=== PATIENT | male | born 1955 | race Caucasian/White ===

== ENCOUNTER 2024-10-14 11:04 | Outpatient (CLI) | payer MEDICARE, SELFPAY | END 2024-10-14 11:05 | disposition home or self-care (01) | LOC: AMB 10-17 11:54 | PROVIDERS: Visit Provider Emergency Medicine | DX: R41.82 Altered mental status, unspecified (principal) | CPT/HCPCS: A0425; A0427 ==

== ENCOUNTER 2024-10-14 11:50 | Inpatient (IN) | payer MEDICARE, SELFPAY ==
[2024-10-14] VITALS (32 sets, daily range): BP systolic 80–140; BP diastolic 42–85; PULSE 90–113; RESP 18–20; TEMP 36.7–37.2; O2SAT 88–95
--- NOTE | 2024-10-14 12:31 | ED.GENADULT ---
HPI - General Adult General Time Seen by Provider: 12:31 Date Seen: 10/14/24 Chief complaint: Fall/Minor Trauma Stated complaint: weakness Time Seen by Provider: 10/14/24 12:10 Source: patient, EMS and RN notes reviewed Mode of arrival: EMS Limitations: no limitations History of Present Illness HPI narrative: This 69-year-old male is brought in by EMS from home. He is autistic living independently but has home care Monday and Monday. He fell today taking the garbage out landing on his right knee, has no complaints of pain. He also fell when showering, fell outside the bathtub. He is not sure why he fell. States he is not feeling weak. Has no pain. He did start taking tamsulosin recently. He does have a new cough. He is denying any fevers or chills. Again, no pain anywhere, no loss of consciousness. He denies any chest pain, states his cough is nonproductive. No other respiratory complaints. No abdominal complaints. He states his knee does not hurt but he does have an abrasion. When we talk about pneumonia, he states he sure hope he does not have pneumonia. Did talked him about doing COVID testing and he states he sure hopes he does not have COVID. Related Data Home Medications ?Medication ?Instructions ?Recorded ?Confirmed Vitamin D (with calcium) 10/14/24 atorvastatin 10 mg tablet 10 mg PO HS 10/14/24 10/14/24 cetirizine 10 mg tablet (Zyrtec) 10 mg PO DAILY PRN 10/14/24 10/14/24 lisinopril 10 mg tablet 10 mg PO DAILY 10/14/24 10/14/24 tamsulosin 0.4 mg capsule 0.4 mg PO DAILY 10/14/24 10/14/24 Allergies Allergy/AdvReac Type Severity Reaction Status Date / Time No Known Drug Allergies Allergy Verified 10/14/24 12:00 Review of Systems Status of ROS: Reports: 6 or more systems reviewed and unremarkable except as noted in History and below [facility] Medical History (Updated 10/14/24 @ 17:29 by Ely Acosta MD) Autism ?F84.0 - Autistic disorder (ICD-10) Social History Smoking Status: Never smoker Do you use any of these nicotine containing products: None How often do you have a drink containing alcohol: never AUDIT-C Alcohol total score: 0 Non-prescribed substance use: denies use Exam Const: Vital Signs, click to edit/add: Vital Signs - 24 hr 10/14/24 11:55 10/14/24 12:37 10/14/24 12:42 Temperature 98.1 F Pulse Rate Pulse Rate [Pulse Oximeter] 100 Pulse Rate [orthos tatic lying Pulse Oximeter] 103 H Pulse Rate [orthos tatic sitting] 108 H Respiratory Rate 20 Blood Pressure Blood Pressure [Ri ght Upper Arm] 118/60 Blood Pressure [or thostatic lying] 102/71 Blood Pressure [or thostatic sitting] 119/78 Pulse Oximetry 91 91 Oxygen Delivery Me thod Room Air 10/14/24 13:09 10/14/24 13:15 10/14/24 13:31 Temperature Pulse Rate 100 99 108 H Pulse Rate [Pulse Oximeter] Pulse Rate [orthos tatic lying Pulse Oximeter] Pulse Rate [orthos tatic sitting] Respiratory Rate Blood Pressure 119/78 Blood Pressure [Ri ght Upper Arm] Blood Pressure [or thostatic lying] Blood Pressure [or thostatic sitting] Pulse Oximetry 88 88 93 Oxygen Delivery Me thod 10/14/24 13:32 10/14/24 13:34 10/14/24 14:06 Temperature Pulse Rate 113 H 108 H 99 Pulse Rate [Pulse Oximeter] Pulse Rate [orthos tatic lying Pulse Oximeter] Pulse Rate [orthos tatic sitting] Respiratory Rate 18 Blood Pressure 122/69 Blood Pressure [Ri ght Upper Arm] Blood Pressure [or thostatic lying] Blood Pressure [or thostatic sitting] Pulse Oximetry 92 92 91 Oxygen Delivery Me thod 10/14/24 14:07 10/14/24 14:15 10/14/24 15:16 Temperature Pulse Rate 96 98 100 Pulse Rate [Pulse Oximeter] Pulse Rate [orthos tatic lying Pulse Oximeter] Pulse Rate [orthos tatic sitting] Respiratory Rate Blood Pressure Blood Pressure [Ri ght Upper Arm] Blood Pressure [or thostatic lying] Blood Pressure [or thostatic sitting] Pulse Oximetry 91 92 92 Oxygen Delivery Me thod 10/14/24 15:30 10/14/24 15:32 10/14/24 15:56 Temperature Pulse Rate 98 100 104 H Pulse Rate [Pulse Oximeter] Pulse Rate [orthos tatic lying Pulse Oximeter] Pulse Rate [orthos tatic sitting] Respiratory Rate Blood Pressure 130/81 Blood Pressure [Ri ght Upper Arm] Blood Pressure [or thostatic lying] Blood Pressure [or thostatic sitting] Pulse Oximetry 92 92 94 Oxygen Delivery Me thod 10/14/24 16:02 10/14/24 16:50 10/14/24 17:00 Temperature Pulse Rate 102 H 100 Pulse Rate [Pulse Oximeter] Pulse Rate [orthos tatic lying Pulse Oximeter] Pulse Rate [orthos tatic sitting] Respiratory Rate 18 Blood Pressure 139/84 Blood Pressure [Ri ght Upper Arm] Blood Pressure [or thostatic lying] Blood Pressure [or thostatic sitting] Pulse Oximetry 94 89 Oxygen Delivery Ny thod 10/14/24 17:02 10/14/24 17:15 10/14/24 17:30 Temperature Pulse Rate 95 100 95 Pulse Rate [Pulse Oximeter] Pulse Rate [orthos tatic lying Pulse Oximeter] Pulse Rate [orthos tatic sitting] Respiratory Rate 20 Blood Pressure 128/74 Blood Pressure [Ri ght Upper Arm] Blood Pressure [or thostatic lying] Blood Pressure [or thostatic sitting] Pulse Oximetry 90 91 91 Oxygen Delivery Ny thod 10/14/24 17:32 10/14/24 17:45 Temperature Pulse Rate 98 97 Pulse Rate [Pulse Oximeter] Pulse Rate [orthos tatic lying Pulse Oximeter] Pulse Rate [orthos tatic sitting] Respiratory Rate Blood Pressure 140/78 H Blood Pressure [Ri ght Upper Arm] Blood Pressure [or thostatic lying] Blood Pressure [or thostatic sitting] Pulse Oximetry 90 [address] [facility] 69-year-[facility] male is alert, interactive, no apparent distress. He is sitting in the bed in exam room 1, alert, interactive, speech is normal. He overall looks pale, is wearing glasses, sclera clear, extraocular muscles intact. A little mattering of his right eye but there is no periorbital change, sq is clear. Speech normal, face atraumatic. Lungs difficult to auscultate as he does not really not comply very well with doing deep breathing to listen. They sound clear anteriorly. CV slightly fast regular, no murmur, normal S1-S2, no S3-S4. Abdomen is soft, nontender, nondistended, no organomegaly or masses. He has no lower extremity edema. Does have an occasional little dry cough during the interaction but voice is not hoarse, no stridor. Has superficial abrasion over the right anterior knee with some mild bruising, there is no joint effusion, has full flexion-extension, really no appreciable tenderness. Documenting provider has reviewed patient's vital signs: yes Course Course ED Course: Wonder if patient has falls is exhibiting weakness for him. Nursing staff did appropriately collect a triple viral swab. Will do a portable chest x-ray to start, will x-ray his right knee as well. Patient is agreeable to doing blood work, will see if we can find source for him. With a tamsulosin, could be blood pressure change, will do orthostatics. Reevaluation(s) Time of Reevaluation #1: 13:38 Reevaluation #1: Did review patient's elevated liver enzymes, elevated white blood count, low-sodium. His chest x-ray certainly does look abnormal. We are going to proceed with chest abdomen pelvis CT imaging. He does not have a fever any hemodynamic changes signifying sepsis but need to watch him closely. Will initiate 500 mL normal saline, he is likely to require admission based on his labs. Time of Reevaluation #2: 17:26 Reevaluation #2: The IV unfortunately blue with the attempt at contrast, there was significant difficulty getting this. Nursing staff tried ultrasound, we had to call anesthesia. We are not going to be able to get another IV that will allow IV contrast for CT imaging. Will do a noncontrast CT, have talked the hospitalists, she can order liver imaging if need be. He is still not meeting any hemodynamic criteria for sepsis. Have spoken with her and we are going to give IV Rocephin and Z-Christopher. She would like inpatient, he is hyponatremic, has pneumonia and has an acute kidney injury. Vital Signs Vital signs: Initial Vital Signs Temperature 98.1 F 10/14/24 11:55 Temperature Source Temporal Artery Scan 10/14/24 11:55 Pulse Rate 100 10/14/24 11:55 Respiratory Rate 20 10/14/24 11:55 Blood Pressure 118/60 10/14/24 11:55 Blood Pressure Mean 7,991 H 10/14/24 11:55 Blood Pressure Position Supine 10/14/24 11:55 Pulse Oximetry 91 10/14/24 11:55 Oxygen Delivery Method Room Air 10/14/24 11:55 Vital Signs Temperature 98.1 F 10/14/24 11:55 Pulse Rate 100 10/14/24 11:55 Respiratory Rate 20 10/14/24 11:55 Blood Pressure 118/60 10/14/24 11:55 Pulse Oximetry 91 10/14/24 11:55 Oxygen Delivery Method Room Air 10/14/24 11:55 Temperature 99 F 10/14/24 18:41 Pulse Rate 104 H 10/14/24 18:41 Respiratory Rate 10/14/24 18:41 Blood Pressure 130/85 10/14/24 18:41 Pulse Oximetry 92 10/14/24 18:41 Oxygen Delivery Method Room Air 10/14/24 18:41 Medications Administered Medications: Discontinued Medications Generic Name Dose Route Start Last Admin Trade Name Freq PRN Reason Stop Dose Admin Sodium Chloride 500 mls @ 500 mls/hr 10/14/24 15:11 10/14/24 17:30 0.9 % Sodium Chloride 500 Ml IV 10/14/24 16:10 500 mls/hr .Q1H ONE Administration Medical Decision Making Lab Data Lab results reviewed: Yes I reviewed the patient's lab results Labs: Lab Results 10/14/24 10/14/24 10/14/24 Range/Units 12:30 13:02 13:44 WBC 21.03 H (4.50-11.00) K/uL RBC 4.16 (4.00-5.20) m/uL Hgb 12.5 (12.0-16.0) gm/dL Hct 37.1 (33.0-51.0) % MCV 89 (80-100) fL MCH 30 (26-34) pg MCHC 34 (32-36) gm/dL RDW Coeff of Abdulaziz 13.3 (11.5-15.5) % Plt Count 249 (140-440) K/uL Neut % (Auto) 80.0 H (42.0-72.0) % Lymph % (Auto) 5.2 L (20-44) % [place] % (Auto) 11.9 H (0.0-11.0) % Eos % (Auto) 0.0 (0.0-7.0) % Baso % (Auto) 0.1 (0.0-3.0) % Neut # (Auto) 16.80 H (1.7-7.0) K/uL Lymph # (Auto) 1.10 (0.90-2.90) K/uL [place] # (Auto) 2.50 H (0.00-0.90) K/UL Eos # (Auto) 0.00 (0.00-0.50) K/uL Baso # (Auto) 0.00 (0.00-0.30) K/uL Abs Immat Gran (auto) 0.60 H (0.00-0.30) K/uL Imm/Tot Granulo (auto) 2.8 % Sodium 126 L (135-149) mmol/L Potassium 4.3 (3.6-5.1) mmol/L Chloride 91 L (96-114) mmol/L Carbon Dioxide 24 (20-32) mmol/L Anion Gap 11 (7-15) mEq/L BUN 17 (7-30) mg/dL Creatinine 1.6 H (0.5-1.5) mg/dL Estimated GFR 35 ml/min Glucose 99 (60-115) mg/dL Lactate 1.7 (0.5-1.9) mmol/L Calcium 9.2 (8.4-10.6) mg/dL Total Bilirubin 0.6 (0.1-1.5) mg/dL AST 191 H (12-35) U/L ALT 240 H (4-35) U/L Alkaline Phosphatase 139 (40-150) U/L C-Reactive Protein 35.4 H (0.5-1.0) mg/dL Total Protein 6.2 (6.0-8.3) g/dL Albumin 3.2 L (3.3-5.0) g/dL Urine Color Dark yellow (Yellow) Urine Appearance Slightly Cloudy A (Clear) Urine pH 5.5 (5.0-8.5) Ur Specific [place] 1.020 (1.000-1.030) Urine Protein 3+ A (Negative) Urine Glucose (UA) Negative (Negative) Urine Ketones 3+ A (Negative) Urine Blood 3+ A (Negative) Urine Nitrite Negative (Negative) Urine Bilirubin 2+ A (Negative) Urine Urobilinogen 2.0 A (0.2-1.0) Ur Leukocyte Esterase Negative (Negative) Urine RBC 0-2 (0-2) Urine WBC 0-2 (0-5) Ur Squamous Epith Cells Few (None-Few) Amorphous Sediment Few A (None) Urine Bacteria None (None) Hyaline Casts Moderate A (None-Few) Coarse Granular Casts Moderate A (None) SARS-CoV-2 (PCR) Negative SARS-CoV-2 (Negative) Influenza Type A (PCR) Negative PCR FLU A (Negative) Influenza Type B (PCR) Negative PCR FLU B (Negative) RSV (PCR) Negative PCR RSV (Negative) Imaging Data Chest x-ray: Attestation: I have reviewed the pertinent imaging results. My impression: Do question if there is left upper lung changes, right lung changes that could be infectious with some infiltrate, await radiology over read. Radiologist's impression: Patient: LAILA YOUNG Facility:?[facility] Patient ID:?[id number] Site Patient ID:?[id number]. Site :?[id number] Study:?XRay-Chest 1 VIEW PORTABLE-10/14/2024 1:32:28 PM Ordering Physician:?Karla Graves Final Report: Indication: cough, falls Technique: AP view of the chest. Comparison: None. Findings: Low lung volumes. Normal cardiomediastinal silhouette. Moderate interstitial prominence and peribronchial cuffing. Mild bibasilar opacities. No pleural effusion or visualized pneumothorax. Impression: Moderate interstitial prominence and peribronchial cuffing may represent moderate pulmonary edema or atypical infection or inflammation. Dictated by Christiano Echevarria MD @ 10/14/2024 1:45:23 PM (Electronic Signature) XR right knee: Attestation: I have reviewed the pertinent imaging results. My impression: Did visualize knee x-rays and I see no acute fracture on my preliminary review, wait radiology over read. Radiologist's impression: Patient: LAILA YOUNG Facility:?[facility] Patient ID:?[id number] Site Patient ID:?[id number]. Site :?1955 Study:?XRay-Knee Right 2 VIEW-10/14/2024 1:34:39 PM Ordering Physician:Leonel Graves Final Report: Indication: fall, injury, abrasions/scrapes on anterior part of knee Technique: Two views of the right knee Comparison: None Findings/Impression: No acute fracture or malalignment. Trace suprapatellar knee joint effusion. Mild medial compartment joint space narrowing; otherwise, no additional osteoarthritic degenerative changes. No suspicious osseous lesions. The soft tissues are without acute abnormality. Vascular calcifications. Dictated by Danie Curtis MD @ 10/14/2024 1:46:38 PM (Electronic Signature) CT scan - chest: Attestation: I have reviewed the pertinent imaging results. My impression: Did visualize chest CT, do see bilateral multifocal changes that I think are probably pneumonia. Await Radiology over-read. Radiologist's impression: Patient: LAILA YOUNG Facility:?[facility] Patient ID:?[id number] Site Patient ID:?[id number]. Site :?1955 Study:?CT-Chest CT CHEST NO IV-10/14/2024 5:57:02 PM Ordering Physician:Leonel Graves Final Report: INDICATION: Cough, low O2 sats. TECHNIQUE: CT chest without contrast. COMPARISON: None. FINDINGS: Lungs and pleura: Patchy areas of consolidation and ground-glass opacities throughout the lungs. Small right pleural effusion. No pneumothorax. Heart and vasculature: Heart size is normal. Thoracic aorta and pulmonary artery are normal in caliber. Lymph nodes/mediastinum: No mediastinal, hilar, or axillary adenopathy. Small hiatal hernia. Chest wall: No masses. Upper abdomen: Partially imaged 1.4 cm hyperdense focus within the right kidney, likely a proteinaceous or hemorrhagic cyst. Bones: Unremarkable for age. IMPRESSION: Multilobar pneumonia with small right pleural effusion. Recommend follow-up imaging after treatment to ensure resolution. Please note that all CT scans at this facility use dose modulation, iterative reconstruction, and/or weight-based dosing when appropriate to reduce radiation dose to as low as reasonably achievable. Dictated by Carlton Ortiz MD @ 10/14/2024 6:37:26 PM (Electronic Signature) Discharge Plan Discharge Clinical Impression: Acute hyponatremia, Acute kidney injury, Elevation of levels of liver transaminase levels Community acquired pneumonia Qualifiers: Lung location: unspecified part of lung Fall Qualifiers: Encounter type: initial encounter Qualified Code(s): W19.XXXA - Unspecified fall, initial encounter Patient Disposition: Admitted As Inpatient
--- NOTE | 2024-10-14 12:37 | CRLHL7_ITS ---
For Patients: As a result of the Cures Act, medical imaging exams and procedure reports are released immediately into your electronic medical record. You may view this report before your referring provider. If you have questions, please contact your health care provider. Indication: cough, falls Technique: AP view of the chest. Comparison: None. Findings: Low lung volumes. Normal cardiomediastinal silhouette. Moderate interstitial prominence and peribronchial cuffing. Mild bibasilar opacities. No pleural effusion or visualized pneumothorax. Impression: Moderate interstitial prominence and peribronchial cuffing may represent moderate pulmonary edema or atypical infection or inflammation. Dictated by Christiano Echevarria MD @ 10/14/2024 1:45:23 PM (Electronically Signed)
--- NOTE | 2024-10-14 12:37 | CRLHL7_ITS ---
For Patients: As a result of the Cures Act, medical imaging exams and procedure reports are released immediately into your electronic medical record. You may view this report before your referring provider. If you have questions, please contact your health care provider. Indication: fall, injury, abrasions/scrapes on anterior part of knee Technique: Two views of the right knee Comparison: None Findings/Impression: No acute fracture or malalignment. Trace suprapatellar knee joint effusion. Mild medial compartment joint space narrowing; otherwise, no additional osteoarthritic degenerative changes. No suspicious osseous lesions. The soft tissues are without acute abnormality. Vascular calcifications. Dictated by Danie Curtis MD @ 10/14/2024 1:46:38 PM (Electronically Signed)
[2024-10-14 13:08] LABS: Lactate* 1.7 mmol/L (0.5-1.9)
--- OUTSIDE RECORDS SUMMARY | 2024-10-14 13:10 | XMS_ITS | Patient Health Record ---
Author Organization [facility] Address [address] [place] [address] Care Team Providers Care Accounting Manager Cpa Name Role Phone No PCP, per PT Primary Care Provider UnavailANGELITA Ruiz Unavailable [phone] No REF, per PT Unavailable Unavailable Allergies Allergen (clinical drug ingredient) Drug/Non Drug Allergy documented on EMR Reaction Allergy Type Onset Date Status Seasonale Unknown Drug Allergy Active hydrochlorothiazide Hydrochlorothiazide swelling Drug Aller gy Active Reason For Referral No Information Medications Medication SIG (Take, Route, Frequency, Duration) Notes Start Date End Date Status Flomax Active ZyrTEC 10 MG Tablet Chewable 1 tablet Orally Once a day Active Vitamin D 25 MCG (1000 UT) Tablet 1 tablet Orally Once a day Active Lisinopril 10 MG Tablet Take 1 Tablet (1 0 mg) by mouth once daily For blood pressure.* Oral; Duration: 90 Days Active Atorvastatin Calcium 10 MG Tablet Take 1 Tablet (10 mg) by mouth at bedtime FOR Cholesterol.* Oral; Duration: 90 Days Active Social History Tobacco Use: Social History Observation Description Date Details (start date - stop date) Never Smoker NA - NA Social History Alcohol Use: Social Info Question Answer Notes Recreational drugs Recreational Drug Use: No Drug/Alcohol: Social Info Question Answer Notes AUDIT-C (Standard) Did you have a drink containing alcohol in the past year? 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 Problem Impacted cerumen (20150896) Bilateral impacted cerumen (H61.23) Active confirmed Vital Signs Height-cm 173.99 cm 08/14/2024 Weight-kg 88.91 kg 08/14/2024 Height 68.5 in 08/14/2024 Weight 196 lbs 08/14/2024 BMI 29.37 kg/m2 08/14/2024 Encounters Encounter Location Date Provider Diagnosis [facility] [address] [place] [address] 05/29/2024 ANGELITA CHAWLA Bilateral impacted cerumen H61.23 [facility] [address] [place] [address] 08/14/2024 ANGELITA CHAWLA Bilateral impacted cerumen H61.23 Assessments Encounter Date Diagnosis (ICD Code) Assessment Notes Treatment Notes Treatment Clinical Notes Section Notes 05/29/2024 Bilateral impacted cerumen (ICD-10 - H61.23) Cerumen impaction removed. No other active ear pathology. 08/14/2024 Bilateral impacted cerumen (ICD-10 - H61.23) 05/29/2024 Other Body mass index material was printed Cerumen impaction removed. No other active ear pathology. Plan Of Treatment No Information Insurance Providers Payer Name Payer Address Payer Phone Subscriber Number Group Number Insured Name Patient Relationship to Insured Coverage Start Date Coverage End Date [employer] [address] [place], [place] [id number] Geovany Mcmullen Self - patient is the insured 4 Medical (General) History Medical History History ICD Code HTN Anxiety moderate intellectual deficiency
[2024-10-14 13:13] LABS: Hematocrit 37.1 % (33.0-51.0); Hemoglobin* 12.5 gm/dL (12.0-16.0); Immature Granulocytes Abs Auto 0.60 K/uL (0.00-0.30); Immature Granulocytes Pct Auto 2.8 %; Lymphocytes Absolute Auto 1.10 K/uL (0.90-2.90); Mean Corpuscular HGB Conc 34 gm/dL (32-36); Mean Corpuscular Hemoglobin 30 pg (26-34); Mean Corpuscular Volume 89 fL (80-100); RDW Coefficient of Variation % 13.3 % (11.5-15.5); Red Blood Count 4.16 m/uL (4.00-5.20); Slide Review Reflex No; White Blood Count* 21.03 K/uL (4.50-11.00)
[2024-10-14 13:19] LABS: PCR FLU A Negative PCR FLU A (Negative); PCR FLU B Negative PCR FLU B (Negative); PCR RSV Negative PCR RSV (Negative); SARS PCR* Negative SARS-CoV-2 (Negative)
[2024-10-14 13:27] LABS: Albumin* 3.2 g/dL (3.3-5.0); Chloride* 91 mmol/L (96-114); Potassium* 4.3 mmol/L (3.6-5.1); Sodium* 126 mmol/L (135-149)
[2024-10-14 13:29] LABS: Blood Urea Nitrogen* 17 mg/dL (7-30); Creatinine* 1.6 mg/dL (0.5-1.5); Estimated Glomerular Filt Rate 35 ml/min
[2024-10-14 13:30] LABS: Alanine Aminotransferase* 240 U/L (4-35); Alkaline Phosphatase* 139 U/L (40-150); Anion Gap 11 mEq/L (7-15); Aspartate Amino Transferase* 191 U/L (12-35); Bilirubin Total* 0.6 mg/dL (0.1-1.5); Calcium* 9.2 mg/dL (8.4-10.6); Carbon Dioxide* 24 mmol/L (20-32); Glucose* 99 mg/dL (60-115); Total Protein* 6.2 g/dL (6.0-8.3)
[2024-10-14 14:11] LABS: Appearance Urine Slightly Cloudy (Clear)
--- NOTE | 2024-10-14 17:22 | CRLHL7_ITS ---
For Patients: As a result of the Century Cures Act, medical imaging exams and procedure reports are released immediately into your electronic medical record. You may view this report before your referring provider. If you have questions, please contact your health care provider. INDICATION: Cough, low O2 sats. TECHNIQUE: CT chest without contrast. COMPARISON: None. FINDINGS: Lungs and pleura: Patchy areas of consolidation and ground-glass opacities throughout the lungs. Small right pleural effusion. No pneumothorax. Heart and vasculature: Heart size is normal. Thoracic aorta and pulmonary artery are normal in caliber. Lymph nodes/mediastinum: No mediastinal, hilar, or axillary adenopathy. Small hiatal hernia. Chest wall: No masses. Upper abdomen: Partially imaged 1.4 cm hyperdense focus within the right kidney, likely a proteinaceous or hemorrhagic cyst. Bones: Unremarkable for age. IMPRESSION: Multilobar pneumonia with small right pleural effusion. Recommend follow-up imaging after treatment to ensure resolution. Please note that all CT scans at this facility use dose modulation, iterative reconstruction, and/or weight-based dosing when appropriate to reduce radiation dose to as low as reasonably achievable. Dictated by Carlton Ortiz MD @ 10/14/2024 6:37:26 PM (Electronically Signed)
[2024-10-14] MEDS: 0.9 % SODIUM CHLORIDE 500 ML 500 ML IV (17:30)
--- NOTE | 2024-10-14 19:18 | PM.IMHP1 ---
Assessment and Plan Assessment and plan (1) Community acquired pneumonia: Problem comment: - R sided, constellation of findings c/w Legionella, urinary antigen pending - Ceftriaxone and Azithromycin (10/14) Status: Acute (2) SIRS (systemic inflammatory response syndrome): Problem comment: - upon arrival to the floor on 10/14, noted to have hypotension and tachycardia - blood cultures obtained, IVF bolus initiated (1L, received 500mL in ER), will follow closely Status: Acute (3) Essential (primary) hypertension: Problem comment: - on Lisinopril as an outpatient, HOLDING given hypotension Status: Acute (4) Elevation of levels of liver transaminase levels: Problem comment: - ddx: Legionella, hepatitis - no abdominal pain or nausea - follow LFTs Status: Acute (5) Acute kidney injury: Problem comment: - creatinine 1.6 on 10/14/24, baseline 1.0 - likely prerenal given acute illness - avoid nephrotoxins, treat with IVFs, follow renal function Status: Acute (6) Fall: Problem comment: - mechanical fall prior to admission, presumably 2/2 illness; will request PT assessment Status: Acute (7) Acute hyponatremia: Problem comment: - Na of 126; baseline 133 - 1800mL fluid restriction, follow Na Status: Acute Plan - per above - renally dosed Lovenox for ppx - reviewed plan of care with brother Mario, questions answered - reassessment of perfusion: patient seen after bolus, HR improved to 90s, SBP improved to >100. Patient continues mentating normally, denies lightheadedness or dizziness, normal capillary refill Hospitalist- H&P: HPI History of Present Illness Date Seen: 10/14/24 Chief complaint: lore Armenta is a 69 yo male with a history of autism who presented to the ER after two falls at home. Mechanical fall while taking out the garbage, landed on R knee; another mechanical fall while showering. No head injury. Ambulating. Denies feeling weak or ill, but does note that he's been coughing for a few days, nonproductive. No pain, no headache, tolerating po intake. No fevers, no known sick contacts. ER Course and findings: - O2 saturations as low as 88% on RA in ER - Chest CT c/w multifocal PNA, small R pleural effusion - WBC 21 with PMN predominance, CRP 35 - Na 126 (baseline 133), Creatinine 1.6 (baseline 1.0), AST/ALT 191 and 240 (not checked recently, remotely normal per [facility]), normal Alk Phos and bilirubin - Azithromycin and Ceftriaxone ordered, given 500mL bolus Gonzalez is admitted for PNA with hypoxia, SERVANDO, hyponatremia, elevated LFTs Upon arrival to the floor, noted to have hypotension with BP 80/58, P 108. Blood cultures obtained and 2L of LR initiated. Histories updated below, PCP is Dr. Bates at [facility]. Review of Systems Status of ROS: Reports: 10 or more systems reviewed and unremarkable except as noted in History and below Narrative: - denies pain, hemoptysis Medical Decision Making Medical Decision Making Code Status: Full Code During This Stay, Who Would You Like To Make Decisions For You In The Event You Are Unable To Make Them For Yourself?: Brothlindy Martin Relevant situational information: Mario ([phone]) is Legal Guardian [facility] Medical History (Updated 10/14/24 @ 21:16 by Iram Epps MD) Hyperlipidemia ?E78.5 - Hyperlipidemia, unspecified (ICD-10) Essential (primary) hypertension ?I10 - Essential (primary) hypertension (ICD-10) Squamous cell carcinoma BCC (basal cell carcinoma), face ?C44.310 - Basal cell carcinoma of skin of unspecified parts of face (ICD-10) Autism ?F84.0 - Autistic disorder (ICD-10) Surgical History (Updated 10/14/24 @ 20:09 by Iram Epps MD) Hx of colonoscopy ?Z98.890 - Other specified postprocedural states (ICD-10) H/O wisdom tooth extraction ?K08.409 - Partial loss of teeth, unspecified cause, unspecified class (ICD-10) Social History (Updated 10/14/24 @ 20:11 by Iram Epps MD) Narrative: Lives independently in [place], Brother Mario is POA (lives in [place]), phone # [phone] Involved with [facility], therapeutic case manager is Lulu Chowdary. Nonsmoker, no ETOH use. Full Code. Smoking Status: Never smoker Do you use any of these nicotine containing products: None How often do you have a drink containing alcohol: never AUDIT-C Alcohol total score: 0 Non-prescribed substance use: denies use Meds Home Medications and Allergies Home Medications ?Medication ?Instructions ?Recorded ?Confirmed ?Type Vitamin D (with calcium) 10/14/24 History atorvastatin 10 mg tablet 10 mg PO HS 10/14/24 10/14/24 History cetirizine 10 mg tablet (Zyrtec) 10 mg PO DAILY PRN 10/14/24 10/14/24 History lisinopril 10 mg tablet 10 mg PO DAILY 10/14/24 10/14/24 History tamsulosin 0.4 mg capsule 0.4 mg PO DAILY 10/14/24 10/14/24 History Allergies Allergy/AdvReac Type Severity Reaction Status Date / Time No Known Drug Allergies Allergy Verified 10/14/24 12:00 Exam Narrative: Exam Narrative: GEN: Alert and oriented, sitting comfortably in bedside chair HEENT: EOMIs bilaterally, no scleral icterus CV: RRR, No concerning murmurs R: No wheezing, R sided rales Ext: wwp, no concerning edema, capillary refill normal Skin: Abrasion vs excoriation RUE, patient unsure how long this has been present. Denies itching Neuro: No focal deficits, no resting tremor Psych: Appropriate Const: Vital Signs, click to edit/add: Vital Signs - 24 hr 10/14/24 11:55 10/14/24 12:37 10/14/24 12:42 Temperature 98.1 F Pulse Rate Pulse Rate [Left P ulse Oximeter] Pulse Rate [Pulse Oximeter] 100 Pulse Rate [orthos tatic lying Pulse Oximeter] 103 H Pulse Rate [orthos tatic sitting] 108 H Respiratory Rate 20 Blood Pressure Blood Pressure [Le ft Arm] Blood Pressure [Ri ght Upper Arm] 118/60 Blood Pressure [or thostatic lying] 102/71 Blood Pressure [or thostatic sitting] 119/78 Pulse Oximetry 91 91 Oxygen Delivery Me thod Room Air 10/14/24 13:09 10/14/24 13:15 10/14/24 13:31 Temperature Pulse Rate 100 99 108 H Pulse Rate [Left P ulse Oximeter] Pulse Rate [Pulse Oximeter] Pulse Rate [orthos tatic lying Pulse Oximeter] Pulse Rate [orthos tatic sitting] Respiratory Rate Blood Pressure 119/78 Blood Pressure [Le ft Arm] Blood Pressure [Ri ght Upper Arm] Blood Pressure [or thostatic lying] Blood Pressure [or thostatic sitting] Pulse Oximetry 88 88 93 Oxygen Delivery Me thod 10/14/24 13:32 10/14/24 13:34 10/14/24 14:06 Temperature Pulse Rate 113 H 108 H 99 Pulse Rate [Left P ulse Oximeter] Pulse Rate [Pulse Oximeter] Pulse Rate [orthos tatic lying Pulse Oximeter] Pulse Rate [orthos tatic sitting] Respiratory Rate 18 Blood Pressure 122/69 Blood Pressure [Le ft Arm] Blood Pressure [Ri ght Upper Arm] Blood Pressure [or thostatic lying] Blood Pressure [or thostatic sitting] Pulse Oximetry 92 92 91 Oxygen Delivery Me thod 10/14/24 14:07 10/14/24 14:15 10/14/24 15:16 Temperature Pulse Rate 96 98 100 Pulse Rate [Left P ulse Oximeter] Pulse Rate [Pulse Oximeter] Pulse Rate [orthos tatic lying Pulse Oximeter] Pulse Rate [orthos tatic sitting] Respiratory Rate Blood Pressure Blood Pressure [Le ft Arm] Blood Pressure [Ri ght Upper Arm] Blood Pressure [or thostatic lying] Blood Pressure [or thostatic sitting] Pulse Oximetry 91 92 92 Oxygen Delivery Me thod 10/14/24 15:30 10/14/24 15:32 10/14/24 15:56 Temperature Pulse Rate 98 100 104 H Pulse Rate [Left P ulse Oximeter] Pulse Rate [Pulse Oximeter] Pulse Rate [orthos tatic lying Pulse Oximeter] Pulse Rate [orthos tatic sitting] Respiratory Rate Blood Pressure 130/81 Blood Pressure [Le ft Arm] Blood Pressure [Ri ght Upper Arm] Blood Pressure [or thostatic lying] Blood Pressure [or thostatic sitting] Pulse Oximetry 92 92 94 Oxygen Delivery Me thod 10/14/24 16:02 10/14/24 16:50 10/14/24 17:00 Temperature Pulse Rate 102 H 100 Pulse Rate [Left P ulse Oximeter] Pulse Rate [Pulse Oximeter] Pulse Rate [orthos tatic lying Pulse Oximeter] Pulse Rate [orthos tatic sitting] Respiratory Rate 18 Blood Pressure 139/84 Blood Pressure [Le ft Arm] Blood Pressure [Ri ght Upper Arm] Blood Pressure [or thostatic lying] Blood Pressure [or thostatic sitting] Pulse Oximetry 94 89 Oxygen Delivery Me thod 10/14/24 17:02 10/14/24 17:15 10/14/24 17:30 Temperature Pulse Rate 95 100 95 Pulse Rate [Left P ulse Oximeter] Pulse Rate [Pulse Oximeter] Pulse Rate [orthos tatic lying Pulse Oximeter] Pulse Rate [orthos tatic sitting] Respiratory Rate 20 Blood Pressure 128/74 Blood Pressure [Le ft Arm] Blood Pressure [Ri ght Upper Arm] Blood Pressure [or thostatic lying] Blood Pressure [or thostatic sitting] Pulse Oximetry 90 91 91 Oxygen Delivery Al thod 10/14/24 17:32 10/14/24 17:45 10/14/24 18:41 Temperature 99 F Pulse Rate 98 97 Pulse Rate [Left P ulse Oximeter] 104 H Pulse Rate [Pulse Oximeter] Pulse Rate [orthos tatic lying Pulse Oximeter] Pulse Rate [orthos tatic sitting] Respiratory Rate 20 Blood Pressure 140/78 H Blood Pressure [Le ft Arm] 130/85 Blood Pressure [Ri ght Upper Arm] Blood Pressure [or thostatic lying] Blood Pressure [or thostatic sitting] Pulse Oximetry 90 91 92 Oxygen Delivery Al thod Room Air Hospitalist - H&P: Result Labs Labs: Short CBC 10/14/24 Range/Units 13:02 WBC 21.03 H (4.50-11.00) K/uL Hgb 12.5 (12.0-16.0) gm/dL Hct 37.1 (33.0-51.0) % Plt Count 249 (140-440) K/uL BMP 10/14/24 13:02 Sodium 126 L Potassium 4.3 Chloride 91 L Carbon Dioxide 24 BUN 17 Creatinine 1.6 H Glucose 99 Calcium 9.2 Liver Function 10/14/24 Range/Units 13:02 Total Bilirubin 0.6 (0.1-1.5) mg/dL AST 191 H (12-35) U/L ALT 240 H (4-35) U/L Alkaline Phosphatase 139 (40-150) U/L Albumin 3.2 L (3.3-5.0) g/dL Urine 10/14/24 Range/Units 13:44 Urine Color Dark yellow (Yellow) Urine Appearance Slightly Cloudy A (Clear) Urine pH 5.5 (5.0-8.5) Ur Specific [place] 1.020 (1.000-1.030) Urine Protein 3+ A (Negative) Urine Glucose (UA) Negative (Negative)
--- NOTE | 2024-10-14 19:32 | PC.NURSE ---
Nursing Care Hours: [id number] Pt this shift calm and cooperative. No c/o pain. Intermittent moist cough between speech. VSS, stable on RA. Pt sitting up in chair eating dinner.
[2024-10-14] MEDS: cefTRIAXone 2 GM in 0.9 % SODIUM CHLORIDE Mini-bag 100 ML IVPB (20:53)
[2024-10-14] MEDS: AZITHROMYCIN 250 MG TABLET 500 MG PO (20:55)
[2024-10-14] MEDS: LACTATED RINGERS 1000 ML 1,000 ML IV ×2 (20:56→21:10)
[2024-10-14] MEDS: SODIUM CHLORIDE 0.9 % (FLUSH) 10 ML SYRINGE 5 ML IVF (21:00)
[2024-10-14 22:07] LABS: S pneumo Ag Urine S. pneumo Negative (Negative)
[2024-10-14] MEDS: LACTATED RINGERS 1000 ML 1,000 ML 125 ML IV (23:20)
[2024-10-15] VITALS (10 sets, daily range): BP systolic 118–149; BP diastolic 66–88; PULSE 88–104; RESP 14–26; TEMP 36.6–37.2; O2SAT 90–95
--- NOTE | 2024-10-15 04:35 | PC.NURSE ---
Shift note: Patient was hypotensive at the start of the shift. MD notified and ordered R/L 2000ml bolus and maintenance dose of 125ml/hr. At that time HR was 108. Vital signs monitored per sepsis protocol.
[2024-10-15 06:44] LABS: Lactate* 0.7 mmol/L (0.5-1.9)
[2024-10-15 06:49] LABS: Hematocrit 32.2 % (37.0-53.0); Hemoglobin* 11.0 gm/dL (13.5-17.5); Immature Granulocytes Pct Auto 1.9 %; Mean Corpuscular HGB Conc 34 gm/dL (32-36); Mean Corpuscular Hemoglobin 30 pg (26-34); Mean Corpuscular Volume 89 fL (80-100); RDW Coefficient of Variation % 13.5 % (11.5-15.5); Red Blood Count 3.63 m/uL (4.30-5.90); White Blood Count* 16.33 K/uL (4.50-11.00)
[2024-10-15 06:51] LABS: Immature Granulocytes Abs Auto 0.30 K/uL (0.00-0.30); Lymphocytes Absolute Auto 1.90 K/uL (0.90-2.90); Slide Review Reflex No
[2024-10-15 07:05] LABS: Albumin* 2.5 g/dL (3.3-5.0); Chloride* 97 mmol/L (96-114); Potassium* 4.0 mmol/L (3.6-5.1); Sodium* 127 mmol/L (135-149)
[2024-10-15 07:08] LABS: Alanine Aminotransferase* 259 U/L (4-50); Alkaline Phosphatase* 96 U/L (40-150); Anion Gap 4 mEq/L (7-15); Aspartate Amino Transferase* 259 U/L (12-35); Bilirubin Total* 0.3 mg/dL (0.1-1.5); Blood Urea Nitrogen* 20 mg/dL (7-30); Carbon Dioxide* 26 mmol/L (20-32); Creatinine* 0.9 mg/dL (0.5-1.5); Estimated Glomerular Filt Rate 93 ml/min
[2024-10-15 07:09] LABS: Calcium* 8.2 mg/dL (8.4-10.6); Glucose* 97 mg/dL (60-115); Total Protein* 5.2 g/dL (6.0-8.3)
[2024-10-15] MEDS: LACTATED RINGERS 1000 ML 1,000 ML 125 ML IV (07:39)
[2024-10-15] MEDS: AZITHROMYCIN 250 MG TABLET PO (08:54)
[2024-10-15] MEDS: guaiFENesin 100 MG/ML CUP PO (09:35)
--- NOTE | 2024-10-15 10:28 | P.IMPN_ITS ---
Assessment and Plan Assessment and plan (1) Community acquired pneumonia: Problem comment: - R sided, constellation of findings c/w Legionella - ruled out, Legionella and strep pneumo negative - continue Ceftriaxone and Azithromycin (10/14), transition to oral on discharge - O2 sats on room air > 90%, remains afebrile - WBC and CRP downtrending - Aerobika and mucinex added Recommending repeat imaging following discharge to ensure resolution Status: Acute (2) SIRS (systemic inflammatory response syndrome): Problem comment: RESOLVED - upon arrival to the floor on 10/14, noted to have hypotension and tachycardia - blood cultures obtained, IVF bolus initiated (1L, received 500mL in ER), will follow closely 10/15 WBC, CRP downtrending. Pressures normotensive. Afebrile. Tachycardia i mproved, <100 BC x2 pending Status: Resolved (3) Essential (primary) hypertension: Problem comment: - on Lisinopril as an outpatient - continue to hold given hypotension on admission Status: Acute (4) Elevation of levels of liver transaminase levels: Problem comment: - ddx: Legionella - negative, hepatitis - no abdominal pain or nausea - follow LFTs 10/15 Acute hepatitis panel ordered Liver ultrasound ordered Status: Acute (5) Acute hyponatremia: Problem comment: - Na of 126; baseline 133 - 1800mL fluid restriction, follow Na 10/15 Na 127, encourage protein/electrolyte supplements in place of free water. Add sodium tabs. Continue to monitor Status: Acute (6) Acute kidney injury: Problem comment: RESOLVED - creatinine 1.6 on 10/14/24, baseline 1.0 - likely prerenal given acute illness - avoid nephrotoxins, treat with IVFs, follow renal function 10/15 Creatinine 0.9 Status: Resolved (7) Fall: Problem comment: - mechanical fall prior to admission, presumably 2/2 illness; will request PT assessment 10/15 PT/OT consults. Family requesting consideration for short-term TCU. May need long-term care following. BrotherMario, is legal guardian and POA Status: Acute Plan Continue IV antibiotics transitioning when able, monitoring sodium. PT OT assessing for short-term TCU. Total Time Spent Total Time Spent: Today I spent 45 minutes seeing the patient, reviewing Expanse and EPIC notes/diagnostics, discussing the care plan with our care time that includes social work, PT/OT, pharmacy, RT, senior care and documenting my impressions and plan in the medical record. Subjective Date Seen: 10/15/24 Interval history: Patient is seen sitting up in a chair this morning. Has no complaints. Denies headache. Tolerating orals without nausea vomiting. Tells me he really likes staying here. Pressures have improved, remains afebrile, remains on room air WBC trending down CRP trending down SERVANDO resolved Sodium up 127 from 126 AST/ALT remain elevated. Acute hepatitis panel ordered. No imaging prior to admission. Ultrasound ordered BC x2 pending Exam Narrative: Exam Narrative: PHYSICAL EXAM General: Pleasant, conversant, NAD HEENT: Normocephalic, atraumatic, sclera white, EOMI, oral mucosa moist Cardiovascular: RRR, S1S2. No pitting edema Pulmonary: Coarse breath sounds throughout, no dyspnea on room air Abdominal: Soft, nondistended, NTTP Neurological: Alert, answering simple questions appropriately Extremities: No gross joint deformity or swelling. AROMI. Neurovascularly intact Skin: Warm, dry. Const: Vital Signs, click to edit/add: Vital Signs - 24 hr 10/14/24 11:55 10/14/24 12:37 10/14/24 12:42 Temperature 98.1 F Pulse Rate Pulse Rate [Left P ulse Oximeter] Pulse Rate [Pulse Oximeter] 100 Pulse Rate [orthos tatic lying Pulse Oximeter] 103 H Pulse Rate [orthos tatic sitting] 108 H Respiratory Rate 20 Blood Pressure Blood Pressure [Le ft Arm] Blood Pressure [Ri ght Upper Arm] 118/60 Blood Pressure [or thostatic lying] 102/71 Blood Pressure [or thostatic sitting] 119/78 Pulse Oximetry 91 91 Oxygen Delivery Me thod Room Air 10/14/24 13:09 10/14/24 13:15 10/14/24 13:31 Temperature Pulse Rate 100 99 108 H Pulse Rate [Left P ulse Oximeter] Pulse Rate [Pulse Oximeter] Pulse Rate [orthos tatic lying Pulse Oximeter] Pulse Rate [orthos tatic sitting] Respiratory Rate Blood Pressure 119/78 Blood Pressure [Le ft Arm] Blood Pressure [Ri ght Upper Arm] Blood Pressure [or thostatic lying] Blood Pressure [or thostatic sitting] Pulse Oximetry 88 88 93 Oxygen Delivery Me thod 10/14/24 13:32 10/14/24 13:34 10/14/24 14:06 Temperature Pulse Rate 113 H 108 H 99 Pulse Rate [Left P ulse Oximeter] Pulse Rate [Pulse Oximeter] Pulse Rate [orthos tatic lying Pulse Oximeter] Pulse Rate [orthos tatic sitting] Respiratory Rate 18 Blood Pressure 122/69 Blood Pressure [Le ft Arm] Blood Pressure [Ri ght Upper Arm] Blood Pressure [or thostatic lying] Blood Pressure [or thostatic sitting] Pulse Oximetry 92 92 91 Oxygen Delivery Me thod 10/14/24 14:07 10/14/24 14:15 10/14/24 15:16 Temperature Pulse Rate 96 98 100 Pulse Rate [Left P ulse Oximeter] Pulse Rate [Pulse Oximeter] Pulse Rate [orthos tatic lying Pulse Oximeter] Pulse Rate [orthos tatic sitting] Respiratory Rate Blood Pressure Blood Pressure [Le ft Arm] Blood Pressure [Ri ght Upper Arm] Blood Pressure [or thostatic lying] Blood Pressure [or thostatic sitting] Pulse Oximetry 91 92 92 Oxygen Delivery [place] thod 10/14/24 15:30 10/14/24 15:32 10/14/24 15:56 Temperature Pulse Rate 98 100 104 H Pulse Rate [Left P ulse Oximeter] Pulse Rate [Pulse Oximeter] Pulse Rate [orthos tatic lying Pulse Oximeter] Pulse Rate [orthos tatic sitting] Respiratory Rate Blood Pressure 130/81 Blood Pressure [Le ft Arm] Blood Pressure [Ri ght Upper Arm] Blood Pressure [or thostatic lying] Blood Pressure [or thostatic sitting] Pulse Oximetry 92 92 94 Oxygen Delivery [place] thod 10/14/24 16:02 10/14/24 16:50 10/14/24 17:00 Temperature Pulse Rate 102 H 100 Pulse Rate [Left P ulse Oximeter] Pulse Rate [Pulse Oximeter] Pulse Rate [orthos tatic lying Pulse Oximeter] Pulse Rate [orthos tatic sitting] Respiratory Rate 18 Blood Pressure 139/84 Blood Pressure [Le ft Arm] Blood Pressure [Ri ght Upper Arm] Blood Pressure [or thostatic lying] Blood Pressure [or thostatic sitting] Pulse Oximetry 94 89 Oxygen Delivery Me thod 10/14/24 17:02 10/14/24 17:15 10/14/24 17:30 Temperature Pulse Rate 95 100 95 Pulse Rate [Left P ulse Oximeter] Pulse Rate [Pulse Oximeter] Pulse Rate [orthos tatic lying Pulse Oximeter] Pulse Rate [orthos tatic sitting] Respiratory Rate 20 Blood Pressure 128/74 Blood Pressure [Le ft Arm] Blood Pressure [Ri ght Upper Arm] Blood Pressure [or thostatic lying] Blood Pressure [or thostatic sitting] Pulse Oximetry 90 91 91 Oxygen Delivery Me thod 10/14/24 17:32 10/14/24 17:45 10/14/24 18:41 Temperature 99 F Pulse Rate 98 97 Pulse Rate [Left P ulse Oximeter] 104 H Pulse Rate [Pulse Oximeter] Pulse Rate [orthos tatic lying Pulse Oximeter] Pulse Rate [orthos tatic sitting] Respiratory Rate 20 Blood Pressure 140/78 H Blood Pressure [Le ft Arm] 130/85 Blood Pressure [Ri ght Upper Arm] Blood Pressure [or thostatic lying] Blood Pressure [or thostatic sitting] Pulse Oximetry 90 91 92 Oxygen Delivery Me thod Room Air 10/14/24 19:00 10/14/24 19:30 10/14/24 20:30 Temperature 98.3 F Pulse Rate Pulse Rate [Left P ulse Oximeter] 108 H Pulse Rate [Pulse Oximeter] Pulse Rate [orthos tatic lying Pulse Oximeter] Pulse Rate [orthos tatic sitting] Respiratory Rate 20 Blood Pressure Blood Pressure [Le ft Arm] 80/58 L 90/49 L 92/42 L Blood Pressure [Ri ght Upper Arm] Blood Pressure [or thostatic lying] Blood Pressure [or thostatic sitting] Pulse Oximetry 92 Oxygen Delivery Me thod Room Air 10/14/24 20:30 10/14/24 21:00 10/14/24 21:00 Temperature 98.3 F Pulse Rate Pulse Rate [Left P ulse Oximeter] 108 H Pulse Rate [Pulse Oximeter] Pulse Rate [orthos tatic lying Pulse Oximeter] Pulse Rate [orthos tatic sitting] Respiratory Rate 20 20 Blood Pressure Blood Pressure [Le ft Arm] 88/51 L 101/64 Blood Pressure [Ri ght Upper Arm] Blood Pressure [or thostatic lying] Blood Pressure [or thostatic sitting] Pulse Oximetry 92 92 Oxygen Delivery Me thod Room Air Room Air 10/14/24 21:09 10/14/24 22:40 10/14/24 22:41 Temperature 98.9 F Pulse Rate Pulse Rate [Left P ulse Oximeter] 101 H 101 H Pulse Rate [Pulse Oximeter] Pulse Rate [orthos tatic lying Pulse Oximeter] Pulse Rate [orthos tatic sitting] Respiratory Rate 20 20 Blood Pressure Blood Pressure [Le ft Arm] 101/64 116/76 Blood Pressure [Ri ght Upper Arm] Blood Pressure [or thostatic lying] Blood Pressure [or thostatic sitting] Pulse Oximetry 95 Oxygen Delivery Me thod Room Air 10/14/24 22:41 10/14/24 23:00 10/15/24 03:00 Temperature 98.6 F Pulse Rate 90 Pulse Rate [Left P ulse Oximeter] 104 H Pulse Rate [Pulse Oximeter] Pulse Rate [orthos tatic lying Pulse Oximeter] Pulse Rate [orthos tatic sitting] Respiratory Rate 20 20 Blood Pressure Blood Pressure [Le ft Arm] 149/88 H Blood Pressure [Ri ght Upper Arm] Blood Pressure [or thostatic lying] Blood Pressure [or thostatic sitting] Pulse Oximetry 95 [facility] 10/15/24 07:13 10/15/24 08:43 10/15/24 08:43 Temperature 98.9 F Pulse Rate 89 Pulse Rate [Left P ulse Oximeter] 97 97 Pulse Rate [Pulse Oximeter] Pulse Rate [orthos tatic lying Pulse Oximeter] Pulse Rate [orthos tatic sitting] Respiratory Rate 14 14 Blood Pressure Blood Pressure [Le ft Arm] 122/72 Blood Pressure [Ri ght Upper Arm] Blood Pressure [or thostatic lying] Blood Pressure [or thostatic sitting] Pulse Oximetry 90 Oxygen Delivery Wv thod Room Air 10/15/24 08:43 Temperature Pulse Rate Pulse Rate [Left P ulse Oximeter] Pulse Rate [Pulse Oximeter] Pulse Rate [orthos tatic lying Pulse Oximeter] Pulse Rate [orthos tatic sitting] Respiratory Rate 14 Blood Pressure Blood Pressure [Le ft Arm] Blood Pressure [Ri ght Upper Arm] Blood Pressure [or thostatic lying] Blood Pressure [or thostatic sitting] Pulse Oximetry 90 Oxygen Delivery Wv thod Room Air Labs Labs: Laboratory Results - last 24 hr 10/14/24 10/14/24 10/14/24 12:30 13:02 13:44 WBC 21.03 H RBC 4.16 Hgb 12.5 Hct 37.1 MCV 89 MCH 30 MCHC 34 RDW Coeff of Abdulaziz 13.3 Plt Count 249 Neut % (Auto) 80.0 H Lymph % (Auto) 5.2 L [place] % (Auto) 11.9 H Eos % (Auto) 0.0 Baso % (Auto) 0.1 Neut # (Auto) 16.80 H Lymph # (Auto) 1.10 [place] # (Auto) 2.50 H Eos # (Auto) 0.00 Baso # (Auto) 0.00 Abs Immat Gran (auto) 0.60 H Imm/Tot Granulo (auto) 2.8 Sodium 126 L Potassium 4.3 Chloride 91 L Carbon Dioxide 24 Anion Gap 11 BUN 17 Creatinine 1.6 H Estimated GFR 35 Glucose 99 Lactate 1.7 Calcium 9.2 Total Bilirubin 0.6 AST 191 H ALT 240 H Alkaline Phosphatase 139 C-Reactive Protein 35.4 H Total Protein 6.2 Albumin 3.2 L Urine Color Dark yellow Urine Appearance Slightly Cloudy A Urine pH 5.5 Ur Specific [place] 1.020 Urine Protein 3+ A Urine Glucose (UA) Negative Urine Ketones 3+ A Urine Blood 3+ A Urine Nitrite Negative Urine Bilirubin 2+ A Urine Urobilinogen 2.0 A Ur Leukocyte Esterase Negative Urine RBC 0-2 Urine WBC 0-2 Ur Squamous Epith Cells Few Amorphous Sediment Few A Urine Bacteria None Hyaline Casts Moderate A Coarse Granular Casts Moderate A Urine L. pneumophilia Ag L. pneumo Negative Urine Strep pneumoniae Ag S. pneumo Negative SARS-CoV-2 (PCR) Negative SARS-CoV-2 Influenza Type A (PCR) Negative PCR FLU A Influenza Type B (PCR) Negative PCR FLU B RSV (PCR) Negative PCR RSV Lab Acknowledgement 10/15/24 10/15/24 05:40 09:31 WBC 16.33 H RBC 3.63 L Hgb 11.0 L Hct 32.2 L MCV 89 MCH 30 MCHC 34 RDW Coeff of Abdulaziz 13.5 Plt Count 255 Neut % (Auto) 70.4 Lymph % (Auto) 11.8 L [place] % (Auto) 13.7 H Eos % (Auto) 2.0 Baso % (Auto) 0.2 Neut # (Auto) 11.50 H Lymph # (Auto) 1.90 [place] # (Auto) 2.20 H Eos # (Auto) 0.30 Baso # (Auto) 0.00 Abs Immat Gran (auto) 0.30 Imm/Tot Granulo (auto) 1.9 Sodium 127 L Potassium 4.0 Chloride 97 Carbon Dioxide 26 Anion Gap 4 L BUN 20 Creatinine 0.9 Estimated GFR 93 Glucose 97 Lactate 0.7 Calcium 8.2 L Total Bilirubin 0.3 AST 259 H ALT 259 H Alkaline Phosphatase 96 C-Reactive Protein 26.0 H Total Protein 5.2 L Albumin 2.5 L Urine Color Urine Appearance Urine pH Ur Specific [place] Urine Protein Urine Glucose (UA) Urine Ketones Urine Blood Urine Nitrite Urine Bilirubin Urine Urobilinogen Ur Leukocyte Esterase Urine RBC Urine WBC Ur Squamous Epith Cells Amorphous Sediment Urine Bacteria Hyaline Casts Coarse Granular Casts Urine L. pneumophilia Ag Urine Strep pneumoniae Ag SARS-CoV-2 (PCR) Influenza Type A (PCR) Influenza Type B (PCR) RSV (PCR) Lab Acknowledgement Test Added
[2024-10-15] MEDS: guaiFENesin 600 MG TAB.ER.12H PO ×2 (11:05→21:02)
[2024-10-15] MEDS: SODIUM CHLORIDE 1 GM TABLET PO ×2 (11:39→17:32)
--- NOTE | 2024-10-15 16:00 | CRLHL7_ITS ---
For Patients: As a result of the Century Cures Act, medical imaging exams and procedure reports are released immediately into your electronic medical record. You may view this report before your referring provider. If you have questions, please contact your health care provider. INDICATION: Elevated LFTs. TECHNIQUE: Ultrasound abdomen limited. Sonographic images of the right upper quadrant were obtained using arredondo-scale and color Doppler images. COMPARISON: None. FINDINGS: Limited evaluation due to difficulty following instructions and limited mobility and diaphragmatic movement and bowel gas. Liver: Coarsened liver echotexture with subtle increased echogenicity.. No suspicious masses. No intrahepatic biliary dilatation. Gallbladder: No stones or sludge. Normal wall thickness. No pericholecystic fluid. Common bile duct: Not visualized Pancreas: Not well visualized Right kidney: Normal in size. Normal echotexture and cortex. No suspicious masses, stones, or hydronephrosis. 2.1 centimeter cyst at the superior pole of the right kidney. Vasculature: Proximal abdominal aorta and IVC are unremarkable. IMPRESSION: Limited evaluation. Within limitations, coarsened echotexture and subtle increased echogenicity may be related to chronic liver disease. Dictated by Amy Rojas MD @ 10/15/2024 5:10:46 PM (Electronically Signed)
--- NOTE | 2024-10-15 16:00 | PC.SOCIAL ---
Addendum entered by ARSENIO Sage 10/15/24 16:34: Discharge planning: Lulu stated she would reach out to pt's brother about this worker's update on discharge recommendations. barn worker plans to reach out to pt's brother tomorrow morning. Social work to follow-up as needed. Original Note: Discharge planning: barn worker spoke with pt's telephonic nurse case manager through [facility], Lulu #[phone], multiple times today throughout the day. Pt has several services that are already set-up in the home and community. Pt has a 24 hour emergency care service, which means if a family member, home care administrator or friend cannot get a hold of him they can call the specific number and ask for a welfare check to be done on him. Pt is also able to call the emergency number from his cell phone if he needs assistance or 911. Pt also has a 1:1 clinical support associate two days a week for four hours a day that help him with cleaning, laundry, prep cooking and grocery shopping. Pt also gets frozen meals([employer] meals) delivered to his home. Pt also attends an Adult Day Services Program(used to be known as Adult Daycare) two days a week where he gets social interaction, etc. Pt also has another service in place where he has 6 and a half hours dedicated to each week where care team staff can check in on him at his apartment, as needed. barn worker also explained to the telephonic nurse case manager that although she and the brother(guardian) would like TCU for the pt, it is not being recommended right now. Pt will need a higher level of care in an Assisted Living Facility or Jail setting in the near future, but physically he does not need to go to a short-term rehab stay at a fpc facility. The pt's need for a higher level of care is based on his intellectual/cognitive functioning needs and not his physical needs. The telephonic nurse case manager stated that they had not even started the process for the pt applying for Medical Assistance to fund an apartment at an Assisted Living Facility, but she has now made a request to have a [place] done, which is scheduling about a month out. This assessment will determine if he qualifies for Medical Assistance and any waiver programs to help fund an apartment at an Assisted Living Facility. Pt is open to going to an Assisted Living Facility. Social work to follow-up as needed.
--- NOTE | 2024-10-15 17:54 | PC.NURSE ---
End of Shift: Patient pleasant and cooperative. Patient vitally stable, posterior lungs throughout are diminished and course, BS WNL, IV SL and intact. Patient has moist cough but unproductive.Patient is on room air. Patient declines using the restroom, yet bottoms will be wet, but patient has also used toilet to urinate, no BM. Patient tolerating regular diet and has been up in chair all day. Tele=NSR.
[2024-10-15] MEDS: ENOXAPARIN 30 MG/0.3ML INJ SUBCUT (21:03)
[2024-10-15] MEDS: cefTRIAXone 1 GM in 0.9 % SODIUM CHLORIDE Mini-bag 100 ML IVPB (21:04)
[2024-10-15] MEDS: SODIUM CHLORIDE 0.9 % (FLUSH) 10 ML SYRINGE 5 ML IVF (21:08)
[2024-10-16 03:00] VITALS: BP 158/88; PULSE 89; RESP 24; TEMP 36.6; O2SAT 92
--- NOTE | 2024-10-16 05:46 | PC.NURSE ---
End of shift report [id number]: Pt is pleasant and cooperative. VSS. Afebrile. On RA. Denies pain. Pt has an intermittent nonproductive cough. Pt ambulated SBA with walker and GB to BR. Bed alarm on, call light within reach.?
[2024-10-16 06:40] LABS: Hematocrit 34.8 % (37.0-53.0); Hemoglobin* 11.8 gm/dL (13.5-17.5); Mean Corpuscular HGB Conc 34 gm/dL (32-36); Mean Corpuscular Hemoglobin 30 pg (26-34); Mean Corpuscular Volume 89 fL (80-100); Red Blood Count 3.90 m/uL (4.30-5.90); White Blood Count* 13.73 K/uL (4.50-11.00)
[2024-10-16 06:46] LABS: Albumin* 2.7 g/dL (3.3-5.0); Chloride* 100 mmol/L (96-114); Sodium* 132 mmol/L (135-149)
[2024-10-16 06:47] LABS: Potassium* 4.0 mmol/L (3.6-5.1)
[2024-10-16 06:48] LABS: Slide Review Reflex No
[2024-10-16 06:49] LABS: Alanine Aminotransferase* 354 U/L (4-50); Alkaline Phosphatase* 112 U/L (40-150); Anion Gap 5 mEq/L (7-15); Aspartate Amino Transferase* 307 U/L (12-35); Bilirubin Direct* 0.2 mg/dL (0.0-0.5); Bilirubin Total* 0.3 mg/dL (0.1-1.5); Blood Urea Nitrogen* 19 mg/dL (7-30); Carbon Dioxide* 27 mmol/L (20-32); Creatinine* 0.7 mg/dL (0.5-1.5); Estimated Glomerular Filt Rate 100 ml/min; Total Protein* 5.7 g/dL (6.0-8.3)
[2024-10-16 06:50] LABS: Calcium* 8.6 mg/dL (8.4-10.6); Glucose* 106 mg/dL (60-115)
[2024-10-16 07:00] VITALS: BP 150/92; PULSE 102; RESP 18; TEMP 36.8; O2SAT 93
[2024-10-16 07:38] VITALS: PULSE 96
[2024-10-16] MEDS: AZITHROMYCIN 250 MG TABLET PO (08:24)
[2024-10-16] MEDS: SODIUM CHLORIDE 1 GM TABLET PO (08:24)
[2024-10-16] MEDS: guaiFENesin 600 MG TAB.ER.12H PO (08:24)
--- NOTE | 2024-10-16 08:27 | PM.DS1 ---
DS: Providers Provider Date Seen: 10/16/24 Date of admission: 10/14/24 18:15 Primary care physician: Selvin Hampton Admitting Clinician: Iram Epps MD Consults: 10/15/24 08:58 Consult to Occupational Therapy [CONS] Routine Comment: Reason(s) for OT Consult:: Evaluate and Treat Any Restrictions?:: No Restrictions Comment: ?need for short term TCU Consult to Physical Therapy [CONS] Routine Comment: Reason(s) for PT Consult:: Evaluate and Treat Any Restrictions?:: No Restrictions Comment: ?Need for short term TCU Attending Physician on discharge: CHYNA Del Rosario, CH[facility]U [place] [facility] Date of Discharge: 10/16/24 DS: Diagnosis Discharge Diagnosis (1) Community acquired pneumonia: Status: Acute Problem details: - CT shows multilobar, patchy areas of consolidation and ground-glass opacities throughout the lungs. Small right pleural effusion, constellation of findings c/w Legionella - ruled out, Legionella and strep pneumo negative - continue Ceftriaxone and Azithromycin (10/14), transition to oral on discharge - O2 sats on room air > 90%, remains afebrile - WBC and CRP downtrending - Aerobika and mucinex added Prior to discharge, continues to clinically improve, appears to be at baseline. Cough has improved. Remains afebrile. No hypoxia. Transitioned to oral amoxicillin and continued on azithromycin upon discharge. Mucinex for cough. Recommending repeat imaging following discharge to ensure resolution - will defer decision to PCP. (2) SIRS (systemic inflammatory response syndrome): Status: Resolved Problem details: RESOLVED - upon arrival to the floor on 10/14, noted to have hypotension and tachycardia - blood cultures obtained, IVF bolus initiated (1L, received 500mL in ER), will follow closely WBC, CRP downtrending. Pressures normotensive. Afebrile. Tachycardia improved, <100 BC x2 NGTD. (3) Essential (primary) hypertension: Status: Acute Problem details: - on Lisinopril as an outpatient - continue to hold given hypotension on admission Normotensive prior to discharge. Resume lisinopril on discharge. (4) Elevation of levels of liver transaminase levels: Status: Acute Problem details: - ddx: Legionella - negative, hepatitis - no abdominal pain or nausea - follow LFTs LFTs remain elevated. Hepatitis panel is pending on discharge. Ultrasound, while limited, shows coarsened echotexture and subtle increased echogenicity which may be related to chronic liver disease. In reviewing limited EMR, no recent labs or imaging to compare. Will need ongoing workup with PCP, consideration for GI consult if necessary. Have advised to hold atorvastatin. (5) Acute hyponatremia: Status: Acute Problem details: - Na of 126; baseline 133 - 1800mL fluid restriction, follow Na Sodium improved to 135 prior to discharge. (6) Acute kidney injury: Status: Resolved Problem details: RESOLVED - creatinine 1.6 on 10/14/24, baseline 1.0 - likely prerenal given acute illness - avoid nephrotoxins, treat with IVFs, follow renal function Resolved prior to discharge, creatinine 0.7 (7) Fall: Status: Acute Problem details: - mechanical fall prior to admission, presumably 2/2 illness; PT assessment. No increased acute needs identified. (8) Discharge planning issues: Status: Acute Problem details: PT/OT consulted. Family requesting consideration for short-term TCU. May need long-term care following. BrotherMario, (lives on [facility]) is legal guardian and POA. PT and OT have assessed, does not meet criteria for acute short-term TCU. line worker has discussed with brother as well as patient's field case manager. Patient has in home support through several services and has current safe discharge plan. This will resume upon discharge. consulting services project manager is currently working on finding long-term placement. During this hospitalization, no physical needs were found for short-term placement. Sounds as though long-term placement is needed as patient ages and requires increasing social/emotional/mental support. DS: Summary Hospital Course Hospital Course: Course of care and details as noted above. Continue amoxicillin and azithromycin on discharge to complete antibiotic course for pneumonia. Mucinex b.i.d. for cough. Will need outpatient follow-up with PCP for further workup transaminitis. Hold atorvastatin. Remainder of chronic medical comorbidities were monitored and managed with home medications. Status at Discharge Functional status at discharge: independent ambulation Overall status at discharge: patient is back to baseline Time Spent with Patient Time attestation: Total time spent providing and/or coordinating discharge services: Time spent: Greater than 30 minutes Exam Narrative: Exam Narrative: PHYSICAL EXAM General: Pleasant, conversant, NAD Cardiovascular: RRR Pulmonary: Improved, no longer coarse, no wheezes. No dyspnea on room air Neurological: Alert, answering questions appropriately Skin: Warm, dry. Const: Vital Signs, click to edit/add: Vital Signs - 24 hr 10/15/24 08:43 10/15/24 08:43 10/15/24 08:43 Temperature 98.9 F Pulse Rate Pulse Rate [Left P ulse Oximeter] 97 97 Respiratory Rate 14 14 14 Blood Pressure [Le ft Arm] 122/72 Pulse Oximetry 90 90 Oxygen Delivery Me thod Room Air Room Air 10/15/24 11:41 10/15/24 14:52 10/15/24 15:00 Temperature 98.9 F 98.7 F Pulse Rate 97 Pulse Rate [Left P ulse Oximeter] 97 88 Respiratory Rate 26 H 24 Blood Pressure [Le ft Arm] 138/78 143/77 H Pulse Oximetry 93 93 Oxygen Delivery Nc thod Room Air Room Air 10/15/24 15:00 10/15/24 15:00 10/15/24 19:00 Temperature 97.9 F Pulse Rate Pulse Rate [Left P ulse Oximeter] 88 104 H Respiratory Rate 24 24 20 Blood Pressure [Le ft Arm] 118/66 Pulse Oximetry 93 93 Oxygen Delivery Me thod Room Air Room Air 10/15/24 20:18 10/15/24 20:31 10/15/24 23:00 Temperature Pulse Rate 92 Pulse Rate [Left P ulse Oximeter] 104 H Respiratory Rate 20 24 Blood Pressure [Le ft Arm] Pulse Oximetry 92 Oxygen Delivery Nc thod Room Air 10/15/24 23:00 10/16/24 03:00 10/16/24 07:38 Temperature 98.9 F 97.8 F Pulse Rate 96 Pulse Rate [Left P ulse Oximeter] 98 89 Respiratory Rate 24 24 Blood Pressure [Le ft Arm] 136/84 158/88 H Pulse Oximetry 92 92 Oxygen Delivery Nc thod Room Air Room Air DS: Data Data Completed and Pending Labs on day of discharge: Labs from last 24 hours 10/16/24 10/15/24 10/15/24 05:54 09:31 05:40 WBC 13.73 H RBC 3.90 L Hgb 11.8 L Hct 34.8 L MCV 89 MCH 30 MCHC 34 Plt Count 305 Sodium 132 L Potassium 4.0 Chloride 100 Carbon Dioxide 27 Anion Gap 5 L BUN 19 Creatinine 0.7 Estimated GFR 100 Glucose 106 Calcium 8.6 Total Bilirubin 0.3 Direct Bilirubin 0.2 AST 307 H ALT 354 H Alkaline Phosphatase 112 Total Protein 5.7 L Albumin 2.7 L Hepatitis A IgM Ab Pending Hep Bs Antigen Pending Hep B Core IgM Ab Pending Hep C Ab Index (BETY) Pending Hep C Ab Interp BETY Pending Hepatitis Interpret Pending Lab Acknowledgement Test Added Preliminary micro results at discharge 10/14/24 20:05 Blood Culture - Preliminary Blood NO GROWTH AFTER 24 HOURS 10/14/24 20:05 Blood Culture - Preliminary Blood NO GROWTH AFTER 24 HOURS Imaging US Abdomen: Attestation: I have reviewed the pertinent imaging results. Radiologist's impression: Limited evaluation due to difficulty following instructions and limited mobility and diaphragmatic movement and bowel gas. Liver: Coarsened liver echotexture with subtle increased echogenicity.. No suspicious masses. No intrahepatic biliary dilatation. Gallbladder: No stones or sludge. Normal wall thickness. No pericholecystic fluid. Common bile duct: Not visualized Pancreas: Not well visualized Right kidney: Normal in size. Normal echotexture and cortex. No suspicious masses, stones, or hydronephrosis. 2.1 centimeter cyst at the superior pole of the right kidney. Vasculature: Proximal abdominal aorta and IVC are unremarkable. IMPRESSION: Limited evaluation. Within limitations, coarsened echotexture and subtle increased echogenicity may be related to chronic liver disease. CT scan - chest: Attestation: I have reviewed the pertinent imaging results. Radiologist's impression: Lungs and pleura: Patchy areas of consolidation and ground-glass opacities throughout the lungs. Small right pleural effusion. No pneumothorax. Heart and vasculature: Heart size is normal. Thoracic aorta and pulmonary artery are normal in caliber. Lymph nodes/mediastinum: No mediastinal, hilar, or axillary adenopathy. Small hiatal hernia. Chest wall: No masses. Upper abdomen: Partially imaged 1.4 cm hyperdense focus within the right kidney, likely a proteinaceous or hemorrhagic cyst. Bones: Unremarkable for age. IMPRESSION: Multilobar pneumonia with small right pleural effusion. Recommend follow-up imaging after treatment to ensure resolution. Knee xray: Attestation: I have reviewed the pertinent imaging results. Radiologist's impression: Findings/Impression: No acute fracture or malalignment. Trace suprapatellar knee joint effusion. Mild medial compartment joint space narrowing; otherwise, no additional osteoarthritic degenerative changes. No suspicious osseous lesions. The soft tissues are without acute abnormality. Vascular calcifications. Chest x-ray: Attestation: I have reviewed the pertinent imaging results. Radiologist's impression: Low lung volumes. Normal cardiomediastinal silhouette. Moderate interstitial prominence and peribronchial cuffing. Mild bibasilar opacities. No pleural effusion or visualized pneumothorax. Impression: Moderate interstitial prominence and peribronchial cuffing may represent moderate pulmonary edema or atypical infection or inflammation. Discharge Plan Discharge Disposition: Home, Self-Care Date of Admission: 10/14/24 18:15 Attending Provider on Discharge: Shantel Monzon Primary Care Provider: Provider,Not a Local Condition: Improved Anticipated Discharge Date/Time: 10/16/24 10:08 Discharge Medications: New guaifenesin [Mucinex] 600 mg Tablet Extended Release 12hr 600 mg PO BID Qty: 10 0RF azithromycin 250 mg Tablet 250 mg PO Q24H Qty: 2 0RF Taper: Z-WING 500 mg Q24H for 1 Day and 0 Hour 250 mg Q24H for 4 Days and 0 Hour amoxicillin 875 mg tablet 875 mg PO BID Qty: 10 0RF Continued cetirizine [Zyrtec] 10 mg tablet 10 mg PO DAILY PRN lisinopril 10 mg tablet 10 mg PO DAILY tamsulosin 0.4 mg capsule 0.4 mg PO DAILY Vitamin D (with calcium) Discontinued atorvastatin 10 mg tablet 10 mg PO HS Discharge Orders: Discharge Order (Routine); Ordered 10/16/24 Ordered By: Shantel Monzon Patient Education: Guaifenesin (By mouth), Amoxicillin (By mouth), Azithromycin (By mouth), Hyponatremia (DC), Community Acquired Pneumonia (DC) Additional Instructions: Complete azithromycin once daily for 2 days and amoxicillin twice daily for 5 days for pneumonia. Continue mucinex for cough. Resume all previous home cares. consulting services project manager is working on finding a salvage determiner care facility. LFTs (liver functions) remain elevated. An ultrasound shows possible chronic liver disease. A hepatitis panel is pending. Will need outpatient follow up with PCP for ongoing work up and consideration for GI consult if necessary. DO NOT TAKE your atorvastatin until advised to do so. Activity Level: No Restrictions and Activity as Tolerated Discharge Diet: Regular Follow Up Appointments: Provider,Not a Local [Primary Care Provider, Family Practice] Isra Bates MD [Referring, Family Practice] - 10/18/24 1:45 pm Referral Note: [facility] for hospital follow-up. Forms: [employer] Info Instructions
[2024-10-16] MEDS: SODIUM CHLORIDE 0.9 % (FLUSH) 10 ML SYRINGE 5 ML IVF (08:28)
--- NOTE | 2024-10-16 10:42 | PC.SOCIAL ---
Addendum entered by ARSENIO Sage 10/16/24 15:03: Discharge planning: breakdown worker received a call from pt's case assembler, Lulu, this afternoon after pt had discharged stating that pt's brother(guardian) would now like to private pay for a half-way facility for the pt and asked if this worker could send a referral to [facility] in [place] at fax number #[phone](they have potential openings for later today or tomorrow). breakdown worker agreed to send the referral since the pt had just recently discharged from the hospital earlier today. Social work to follow-up if needed. Addendum entered by ARSENIO Sage 10/16/24 11:08: Discharge planning: Pt's friend, Alvin, will be picking him up at the hospital around noon today. breakdown worker relayed this message to the charge nurse on duty. Social work to follow-up as needed. Original Note: Discharge planning: breakdown worker spoke with the pt's case assembler, Lulu, this morning after rounds and reiterated with her that the pt does not need TCU and from the hospital stand point is able to return home. Lulu stated that the pt's brother, Mario(guardian), and her do not feel he is safe to go home and she is going to start looking for a place for the pt to go to. breakdown worker did explain to Lulu that the pt is ready for discharge today and this worker will be talking to the pt's brother about the plan for discharge today. breakdown worker spoke to the pt's brother, Mario, via phone and he understood that the pt was ready for discharge from the hospital. Mario stated that he was concerned about the pt's safety and the fact that he didn't realize how sick he was before he was found on the floor in his apartment by one of his caregivers. breakdown worker explained that the pt is doing better physically after being in the hospital and doesn't need short-term rehab. This social media intern will also have the provider on duty call the brother to talk to him about his physical status and other questions Mario had about the pt's pneumonia diagnosis. breakdown worker also discussed with Mario how the pt's decline has been ongoing for awhile now, months even years, and he would have benefited from moving to a higher level of care awhile ago. Pt's brother agreed and said that he knew the pt has been declining and that a higher level of care has been needed. breakdown worker did talk to the pt's brother about The Important Message from Medicare and that he could appeal the pt's discharge if he wanted to, but Mario did not feel that was necessary at this time and will work on trying to find a ride for the pt from the hospital back home. Mario will follow-up with this worker when he hears back about a ride time for the pt. Social work to follow-up as needed.
[2024-10-16 11:00] VITALS: BP 144/75; PULSE 92; RESP 22; TEMP 37.2; O2SAT 92
--- NOTE | 2024-10-16 12:22 | PC.NURSE ---
Discharge Note ?(247)? ? Patient has been very cooperative throughout the shift. He is diagnosed with autism and timing of cares/meals is very important to him. He was admitted for hyponatremia and pneumonia. He has 2 falls recently and has scrapes on right knee and right elbow. He reported no pain. He lives independently in an apartment, but machine adjuster leader case trim is trying to find a more adequate living situation for him. He was picked up by ?Alvin? who visits him twice a week to help him out with daily activities and needs at home. Discharge paperwork was explained to the patient and ?Alvin?. Patient moves well and was discharged with a walker to take home. Lung sounds: fine crackles on both lower lobes, active bowel sounds. Patient?s cough is intermittent and productive. Patient was discharged at 12:10 on 10/16/2024?
--- NOTE | 2024-10-16 12:26 | PC.NURSE ---
Discharge Note ?(247)? ? Patient has been very cooperative throughout the shift. He is diagnosed with autism and timing of cares/meals is very important to him. He was admitted for hyponatremia and pneumonia. He has 2 falls recently and has scrapes on right knee and right elbow. He reported no pain. He lives independently in an apartment, but counseling case manager is trying to find a more adequate living situation for him. He was picked up by ?Alvin? who visits him twice a week to help him out with daily activities and needs at home. Discharge paperwork was explained to the patient and ?Alvin?. Patient moves well and was discharged with a walker to take home. Lung sounds: fine crackles on both lower lobes, active bowel sounds. Patient?s cough is intermittent and productive. Patient was discharged at 12:10 on 10/16/2024?
[2024-10-16 21:17] LABS: Hep B Surface Antigen Negative (Negative); Hep C Ab by CIA Interp Negative (Negative)
== END 2024-10-16 12:10 | disposition home or self-care (01) | DRG 194 ==
LOC: ED 17:29 → MEDSURG 18:14
PROVIDERS: Physician Assistant; Admitting Provider Family Medicine; Emergency Provider Family Medicine; Visit Provider Family Medicine
DX: J18.9 Pneumonia, unspecified organism (principal); E87.1 Hypo-osmolality and hyponatremia; F84.0 Autistic disorder; N17.9 Acute kidney failure, unspecified; R74.01 Elevation of levels of liver transaminase levels; S80.211A Abrasion, right knee, initial encounter; W18.2XXA Fall in (into) shower or empty bathtub, initial encounter; Z91.81 History of falling; Y93.E1 Activity, personal bathing and showering; Y92.002 Bathroom of unspecified non-institutional (private) residence as the place of occurrence of the external cause; W19.XXXA Unspecified fall, initial encounter; Y92.008 Other place in unspecified non-institutional (private) residence as the place of occurrence of the external cause; I10 Essential (primary) hypertension; E78.5 Hyperlipidemia, unspecified
CPT/HCPCS: 36415; 71045; 71250; 73560; 76705; 80048; 80053; 80074; 80076; 81001; 83605; 85025; 85027; 86140; 87040; 87449; 87631; 87899; 94761; 97116; 97161; 97165; 97530; 99285; A9270; J0696; J1650; J7030; J7050; J7120